=== PATIENT | female | born 1950 | race Two or more races ===

== ENCOUNTER 2020-06-05 | Outpatient (CLI) | payer OTHER | END 2020-06-05 07:34 | disposition home or self-care (01) | LOC: PPH VACUNA | PROVIDERS: ATTEND Emergency Medicine Pediatric Emergency Medicine | DX: Z23 Encounter for immunization (principal) ==

== ENCOUNTER 2024-05-10 13:07 | Inpatient (IN) | payer OTHER ==
[~2024-05-10] VITALS: Ht 152.4 cm; Wt 67.1 kg
[2024-05-10 14:00] VITALS: BP 128/65; O2SAT 96
[2024-05-10] MEDS ORDERED: PIPERACILLIN/TAZOBACTAM SODIUM 3.375 GM VIAL IV SCH (14:00)
[2024-05-10] MEDS ORDERED: 0.9 % SODIUM CHLORIDE 1,000 ML IV SCH (14:00)
[2024-05-10] MEDS ORDERED: FAMOTIDINE/PF 20 MG/2 ML VIAL IV PUSH SCH (17:00)
[2024-05-10 17:05] VITALS: BP 161/74; O2SAT 98
[2024-05-10] MEDS ORDERED: DIATRIZOATE MEGLUMINE, SODIUM 30 ML BOTTLE PO ONE (18:45)
[2024-05-10] MEDS ORDERED: MORPHINE SULFATE 4 MG/ML CARTRIDGE IV PRN (18:45)
[2024-05-10] MEDS ORDERED: PHENOL 177 ML BOTTLE MM SCH (18:58)
[2024-05-10] MEDS ORDERED: ONDANSETRON HCL 2 MG/ML VIAL IV SCH (20:00)
[2024-05-11] VITALS: BP 149/78; O2SAT 96
[2024-05-11] MEDS ORDERED: DIATRIZOATE MEGLUMINE, SODIUM 30 ML BOTTLE PO ONE (06:00)
[2024-05-11 07:35] VITALS: BP 133/69; O2SAT 93
[2024-05-11 12:07] LABS: HEMATOCRIT 30.3 % (36.0-45.00); HEMOGLOBIN 10.3 g/dL (12.0-15.00); MEAN CELL VOLUME 89.8 fL (80.00-100.00); MEAN CORPUSCULAR HEMOGLOBIN 30.5 pg (27.00-32.0); MEAN CORPUSCULAR HGB CONC 33.9 g/dl (32.0-36.0); PLATELET COUNT 717 K/uL (150-450); RED BLOOD COUNT 3.38 M/uL (4.00-6.00); RED CELL DISTRIBUTION WIDTH 13.5 % (11.5-14.5)
[2024-05-11] MEDS ORDERED: ENALAPRILAT DIHYDRATE 1.25 MG/ML VIAL IV PRN (12:30)
[2024-05-11 12:53] LABS: ALBUMIN 2.6 gm/dL (3.4-5.0); BILIRUBIN TOTAL 0.65 mg/dL (0.3-1.2); CALCIUM 7.8 mg/dL (8.5-10.1); CREATININE SERUM 0.72 mg/dL (0.55-1.02); GFR 79.62; GLOBULINA 4.1 G/DL (2.4-3.5); MAGNESIUM 2.5 mg/dL (1.8-2.4); PHOSPHOROUS 2.7 mg/dL (2.5-4.9); POTASSIUM 3.81 mEq/L (3.5-5.1); TOTAL PROTEIN 6.7 gm/dL (6.4-8.2)
[2024-05-11 12:54] LABS: C-REACTIVE PROTEIN 4.79 MG/DL (0.00-0.29)
[2024-05-11] MEDS ORDERED: THIAMINE HCL 100 MG/ML 2 ML VIAL IV NR (13:00)
[2024-05-11] MEDS ORDERED: MULTIVIT INFUSN,ADULT 4,VIT K 10 ML VIAL IV NR (13:00)
[2024-05-11] MEDS ORDERED: ENOXAPARIN SODIUM 40 MG/0.4 ML SYRINGE SUBCUTANEO NR (13:00)
[2024-05-11 13:33] LABS: INR 1.34; PROTHROMBIN TIME 14.3 SECONDS (9.0-11.5)
[2024-05-11 15:30] LABS: PH,URINE 5.5 (5.0-8.0); URINE APPEARANCE Clear; URINE BILIRRUBIN Negative (NEGATIVE); URINE BLOOD Negative; URINE COLOR Yellow; URINE GLUCOSE Negative (NEGATIVE); URINE LEUKOCYTE Negative; URINE NITRATE Negative; URINE PROTEIN 30 (NEGATIVE); URINE UROBILINOGEN 0.2 E.U./dl
[2024-05-11 15:37] LABS: URINE BACTERIA 25.7 uL (0.0-1933); URINE EPITHELIAL CELLS 17.4 uL (0.0-38.8); URINE RBC 19.8 uL (0.0-20.8)
[2024-05-11] MEDS ORDERED: VANCOMYCIN HCL 1,000 MG VIAL ONE ×2 (15:48→22:07)
[2024-05-11 16:15] LABS: URINE CAST 0.29 uL (0.0-1.40); URINE KETONE 40 (NEGATIVE)
[2024-05-11] MEDS ORDERED: AMINO ACIDS 4.25 %/DEXTROSE 5% 1,000 ML PERIFERAL SCH (17:00)
[2024-05-11] MEDS ORDERED: VANCOMYCIN HCL 1,000 MG VIAL IV SCH (17:00)
[2024-05-11 17:08] VITALS: BP 164/74; O2SAT 100
[2024-05-11 23:37] LABS: HEMATOCRIT 31.5 % (36.0-45.00); MEAN CELL VOLUME 89.7 fL (80.00-100.00); MEAN CORPUSCULAR HGB CONC 33.2 g/dl (32.0-36.0); PLATELET COUNT 749 K/uL (150-450); RED BLOOD COUNT 3.51 M/uL (4.00-6.00); RED CELL DISTRIBUTION WIDTH 13.6 % (11.5-14.5)
[2024-05-11 23:40] LABS: HEMOGLOBIN 10.4 g/dL (12.0-15.00); MEAN CORPUSCULAR HEMOGLOBIN 29.6 pg (27.00-32.0)
[2024-05-11 23:45] LABS: CALCIUM 7.6 mg/dL (8.5-10.1); CHOL HDL RATIO 6.3 (0-5.0); CREATININE SERUM 0.92 mg/dL (0.55-1.02); GFR 60.01; POTASSIUM 3.33 mEq/L (3.5-5.1)
[2024-05-12 00:03] LABS: CALCIUM 7.7 mg/dL (8.5-10.1); CREATININE SERUM 0.93 mg/dL (0.55-1.02); GFR 59.26; MAGNESIUM 2.2 mg/dL (1.8-2.4); PHOSPHOROUS 2.2 mg/dL (2.5-4.9); POTASSIUM 3.33 mEq/L (3.5-5.1)
[2024-05-12 00:45] VITALS: BP 145/69; O2SAT 96
[2024-05-12] MEDS ORDERED: MULTIVIT INFUSN,ADULT 4,VIT K 10 ML VIAL IV SCH (09:00)
[2024-05-12] MEDS ORDERED: ENOXAPARIN SODIUM 40 MG/0.4 ML SYRINGE SUBCUTANEO SCH (09:00)
[2024-05-12] MEDS ORDERED: THIAMINE HCL 100 MG/ML 2 ML VIAL IV SCH (09:00)
[2024-05-12] MEDS ORDERED: SUCRALFATE 1 G TABLET PO SCH (09:00)
[2024-05-12] MEDS ORDERED: POTASSIUM CHLORIDE 20MEQ/100ML H2O PB IV NR (11:00)
[2024-05-12] MEDS ORDERED: POTASSIUM PHOS,M-BASIC-D-BASIC 3 MM/ML VIAL IV NR (11:00)
[2024-05-12] MEDS ORDERED: LACTOBACILLUS ACIDOPHILUS 1 CAP CAP PO SCH (11:01)
[2024-05-12] MEDS ORDERED: VALSARTAN 160 MG PO SCH (11:02)
[2024-05-12 11:30] VITALS: BP 131/67; O2SAT 96
[2024-05-12] MEDS ORDERED: VANCOMYCIN HCL 1,000 MG VIAL ONE (15:44)
[2024-05-12 16:10] VITALS: BP 149/70; O2SAT 99
[2024-05-12] MEDS ORDERED: DOXYCYCLINE HYCLATE 100MG IV SCH (21:00)
[2024-05-12] MEDS ORDERED: DOXYCYCLINE HYCLATE 100MG IV ONE (21:37)
[2024-05-13 00:31] VITALS: BP 132/72; O2SAT 100
[2024-05-13 08:27] LABS: HEMATOCRIT 28.1 % (36.0-45.00); HEMOGLOBIN 9.4 g/dL (12.0-15.00); MEAN CORPUSCULAR HEMOGLOBIN 30.2 pg (27.00-32.0); MEAN CORPUSCULAR HGB CONC 33.6 g/dl (32.0-36.0); PLATELET COUNT 481 K/uL (150-450); RED BLOOD COUNT 3.12 M/uL (4.00-6.00); RED CELL DISTRIBUTION WIDTH 13.4 % (11.5-14.5)
[2024-05-13 08:46] VITALS: BP 140/65; O2SAT 99
[2024-05-13] MEDS ORDERED: Cyanocobalamin/Mecobalamin 1 TAB.SL SL SCH (09:40)
[2024-05-13] MEDS ORDERED: SOD FERRIC GLUC COMPLX/SUCROSE 62.5 MG in 0.9 % SODIUM CHLORIDE 50 ML IV SCH (11:34)
[2024-05-13] MEDS ORDERED: LEVALBUTEROL HCL 0.63 MG/3 ML SOLUTION IH ONE (11:44)
[2024-05-13] MEDS ORDERED: FUROsemide 20 MG/2 ML VIAL IV STA (11:59)
[2024-05-13] MEDS ORDERED: LEVALBUTEROL HCL 0.63 MG/3 ML SOLUTION IH STA (12:00)
[2024-05-13] MEDS ORDERED: DOXYCYCLINE HYCLATE 100MG IV ONE ×2 (12:57→14:23)
[2024-05-13 16:00] VITALS: BP 121/69; O2SAT 98
[2024-05-13] MEDS ORDERED: LEVALBUTEROL HCL 0.63 MG/3 ML SOLUTION IH SCH (17:00)
[2024-05-14 00:09] VITALS: BP 137/65; O2SAT 97
[2024-05-14] MEDS ORDERED: DOXYCYCLINE HYCLATE 100MG IV ONE ×2 (07:52→14:37)
[2024-05-14 09:44] VITALS: BP 129/73; O2SAT 99
[2024-05-14] MEDS ORDERED: BUDESONIDE 0.25 MG/2 ML AMPUL.NEB IH SCH (09:55)
[2024-05-14] MEDS ORDERED: FUROsemide 20 MG/2 ML VIAL IV SCH (09:56)
[2024-05-14] MEDS ORDERED: FAMOTIDINE/PF 20 MG/2 ML VIAL IV PUSH SCH (13:00)
[2024-05-14 16:00] VITALS: BP 147/70; O2SAT 95
[2024-05-15 00:59] VITALS: BP 147/63; O2SAT 95
[2024-05-15 07:20] LABS: MEAN CELL VOLUME 89.7 fL (80.00-100.00); MEAN CORPUSCULAR HGB CONC 35.3 g/dl (32.0-36.0); PLATELET COUNT 568 K/uL (150-450); RED BLOOD COUNT 2.57 M/uL (4.00-6.00); RED CELL DISTRIBUTION WIDTH 13.7 % (11.5-14.5)
[2024-05-15 07:27] LABS: HEMOGLOBIN 8.1 g/dL (12.0-15.00); MEAN CORPUSCULAR HEMOGLOBIN 31.5 pg (27.00-32.0)
[2024-05-15] MEDS ORDERED: DOXYCYCLINE HYCLATE 100MG IV ONE ×2 (07:36→14:28)
[2024-05-15 07:58] LABS: CALCIUM 7.6 mg/dL (8.5-10.1); CREATININE SERUM 0.72 mg/dL (0.55-1.02); GFR 79.62; MAGNESIUM 1.6 mg/dL (1.8-2.4); PHOSPHOROUS 2.6 mg/dL (2.5-4.9); POTASSIUM 3.28 mEq/L (3.5-5.1)
[2024-05-15 08:03] VITALS: BP 146/74; O2SAT 96
[2024-05-15] MEDS ORDERED: HYDROCHLOROTHIAZIDE 12.5 MG CAPSULE PO SCH (09:00)
[2024-05-15] MEDS ORDERED: MAGNESIUM SULFATE IN WATER 50 ML IV NR (09:00)
[2024-05-15] MEDS ORDERED: POTASSIUM CHLORIDE 20MEQ/100ML H2O PB IV NR (11:00)
[2024-05-15 13:45] LABS: HEMATOCRIT 30.2 % (36.0-45.00); HEMOGLOBIN 10.3 g/dL (12.0-15.00); MEAN CELL VOLUME 88.9 fL (80.00-100.00); MEAN CORPUSCULAR HEMOGLOBIN 30.2 pg (27.00-32.0); PLATELET COUNT 753 K/uL (150-450); RED CELL DISTRIBUTION WIDTH 13.4 % (11.5-14.5)
[2024-05-15 16:41] VITALS: BP 165/81; O2SAT 98
[2024-05-16] VITALS: BP 150/56; O2SAT 96
[2024-05-16] MEDS ORDERED: DOXYCYCLINE HYCLATE 100MG IV ONE ×2 (07:37→15:30)
[2024-05-16 08:20] VITALS: BP 152/78; O2SAT 100
[2024-05-16 19:44] VITALS: BP 163/70; O2SAT 97
[2024-05-17 00:30] VITALS: BP 135/72; O2SAT 98
[2024-05-17] MEDS ORDERED: DOXYCYCLINE HYCLATE 100MG IV ONE ×2 (07:22→16:31)
[2024-05-17 07:51] LABS: HEMATOCRIT 24.5 % (36.0-45.00); MEAN CELL VOLUME 90.3 fL (80.00-100.00); MEAN CORPUSCULAR HEMOGLOBIN 31.7 pg (27.00-32.0); MEAN CORPUSCULAR HGB CONC 35.2 g/dl (32.0-36.0); PLATELET COUNT 580 K/uL (150-450); RED BLOOD COUNT 2.71 M/uL (4.00-6.00); RED CELL DISTRIBUTION WIDTH 13.7 % (11.5-14.5)
[2024-05-17 07:52] LABS: HEMOGLOBIN 8.6 g/dL (12.0-15.00)
[2024-05-17 08:31] VITALS: BP 158/69; O2SAT 96
[2024-05-17] MEDS ORDERED: PANTOPRAZOLE SODIUM 40 MG/VIAL VIAL IV SCH (08:45)
[2024-05-17 09:03] LABS: ALBUMIN 2.2 gm/dL (3.4-5.0); BILIRUBIN TOTAL 0.76 mg/dL (0.3-1.2); CALCIUM 8.2 mg/dL (8.5-10.1); CREATININE SERUM 0.72 mg/dL (0.55-1.02); GFR 79.62; GLOBULINA 3.4 G/DL (2.4-3.5); MAGNESIUM 1.7 mg/dL (1.8-2.4); PHOSPHOROUS 3.2 mg/dL (2.5-4.9); POTASSIUM 3.22 mEq/L (3.5-5.1); TOTAL PROTEIN 5.6 gm/dL (6.4-8.2); TSH 2.49 uIU/mL (0.358-3.74)
[2024-05-17 09:15] LABS: C-REACTIVE PROTEIN 4.74 MG/DL (0.00-0.29)
[2024-05-17] MEDS ORDERED: DIATRIZOATE MEGLUMINE, SODIUM 30 ML BOTTLE PO STA (10:20)
[2024-05-17] MEDS ORDERED: POTASSIUM CHLORIDE 20MEQ/100ML H2O PB IV NR (13:15)
[2024-05-17 16:00] VITALS: BP 164/74; O2SAT 96
[2024-05-18 01:28] VITALS: BP 136/65; O2SAT 97
[2024-05-18] MEDS ORDERED: DOXYCYCLINE HYCLATE 100MG IV ONE ×2 (07:19→15:13)
[2024-05-18 08:00] VITALS: BP 158/84; O2SAT 97
[2024-05-18 12:00] VITALS: BP 155/70; O2SAT 95
[2024-05-18 12:16] LABS: ABG PH 7.522 (7.35-7.45); ABG pCO2 37.5 mmHg (35-45); BICARBONATE 30.1 mmol/l (23-25); SaO2 93.2 %; Tco2 31.2 mmol/l
[2024-05-18 12:21] LABS: ABG PO2 57.9 mmHg (80-100); allen test SATISFACTORY; o2 21 %; puncture site RADIAL RIGHT
[2024-05-18] MEDS ORDERED: AMLODIPINE BESYLATE 5 MG TABLET PO SCH (12:40)
[2024-05-18 16:00] VITALS: BP 160/80; O2SAT 95
[2024-05-18 20:56] LABS: TP PLEURAL FLUID 2.3 g/dl
[2024-05-18] MEDS ORDERED: FAMOtidine 20 MG TABLET PO SCH (21:00)
[2024-05-18 21:33] LABS: MONONUCLEAR 90 %; PLEURAL FLUID APPEARANCE HAZY; PLEURAL FLUID COLOR YELLOW; POLYMORPHONUCLEAR 10 %
[2024-05-19] VITALS: BP 144/65; O2SAT 95
[2024-05-19 06:50] LABS: HEMATOCRIT 26.5 % (36.0-45.00); HEMOGLOBIN 9.3 g/dL (12.0-15.00); MEAN CORPUSCULAR HEMOGLOBIN 31.4 pg (27.00-32.0); MEAN CORPUSCULAR HGB CONC 35.3 g/dl (32.0-36.0); PLATELET COUNT 548 K/uL (150-450); RED BLOOD COUNT 2.98 M/uL (4.00-6.00); RED CELL DISTRIBUTION WIDTH 14.3 % (11.5-14.5)
[2024-05-19 07:18] LABS: ALBUMIN 2.4 gm/dL (3.4-5.0); BILIRUBIN TOTAL 0.67 mg/dL (0.3-1.2); C-REACTIVE PROTEIN 3.66 MG/DL (0.00-0.29); CALCIUM 8.6 mg/dL (8.5-10.1); CREATININE SERUM 0.72 mg/dL (0.55-1.02); GFR 79.62; GLOBULINA 3.6 G/DL (2.4-3.5); MAGNESIUM 1.6 mg/dL (1.8-2.4); PHOSPHOROUS 3.6 mg/dL (2.5-4.9); POTASSIUM 3.19 mEq/L (3.5-5.1)
[2024-05-19 08:00] VITALS: BP 140/60; O2SAT 95
[2024-05-19] MEDS ORDERED: DOXYCYCLINE HYCLATE 100MG IV ONE ×2 (08:27→15:58)
[2024-05-19] MEDS ORDERED: MAGNESIUM SULFATE IN WATER 50 ML IV NR (12:00)
[2024-05-19] MEDS ORDERED: POTASSIUM CHLORIDE 20MEQ/100ML H2O PB IV NR (14:00)
[2024-05-19 17:00] VITALS: BP 110/62; O2SAT 95
[2024-05-20 01:00] VITALS: BP 122/72; O2SAT 96
[2024-05-20 08:00] VITALS: BP 127/68; O2SAT 95
[2024-05-20] MEDS ORDERED: DOXYCYCLINE HYCLATE 100MG IV ONE ×2 (08:18→14:58)
[2024-05-20 08:47] LABS: ABG PO2 63.4 mmHg (80-100); ABG pCO2 38.5 mmHg (35-45); BASE EXCESS 5.1 mmol/l; BICARBONATE 28.7 mmol/l (23-25); SaO2 94.1 %; Tco2 29.9 mmol/l
[2024-05-20 08:53] LABS: allen test SATISFACTORY; o2 21 %; puncture site RADIAL RIGHT
[2024-05-20 15:39] LABS: HEMATOCRIT 30.9 % (36.0-45.00); HEMOGLOBIN 10.6 g/dL (12.0-15.00); MEAN CELL VOLUME 89.8 fL (80.00-100.00); MEAN CORPUSCULAR HEMOGLOBIN 30.8 pg (27.00-32.0); MEAN CORPUSCULAR HGB CONC 34.3 g/dl (32.0-36.0); PLATELET COUNT 550 K/uL (150-450); RED BLOOD COUNT 3.44 M/uL (4.00-6.00); RED CELL DISTRIBUTION WIDTH 14.2 % (11.5-14.5)
[2024-05-20 17:34] VITALS: BP 149/66; O2SAT 96
[2024-05-21] VITALS: BP 115/65; O2SAT 95
[2024-05-21] MEDS ORDERED: DOXYCYCLINE HYCLATE 100MG IV ONE ×3 (07:37→14:40)
[2024-05-21 08:00] VITALS: BP 129/72; O2SAT 95
== END 2024-05-21 16:05 | disposition home or self-care (01) | DRG 871 ==
LOC: SURH 13:07
PROVIDERS: Internal Medicine; Internal Medicine Geriatric Medicine; Internal Medicine Infectious Disease; Radiology Vascular & Interventional Radiology; ADMIT Surgery; ATTEND Surgery
PROC: BW21YZZ Computerized Tomography (CT Scan) of Abdomen and Pelvis using Other Contrast (ICD-10-PCS; 2024-05-10)
PROC: BW24ZZZ Computerized Tomography (CT Scan) of Chest and Abdomen (ICD-10-PCS; 2024-05-11)
PROC: B24BZZZ Ultrasonography of Heart with Aorta (ICD-10-PCS; 2024-05-11)
PROC: 02HV33Z Insertion of Infusion Device into Superior Vena Cava, Percutaneous Approach (ICD-10-PCS; 2024-05-11)
PROC: BW21YZZ Computerized Tomography (CT Scan) of Abdomen and Pelvis using Other Contrast (ICD-10-PCS; 2024-05-17)
PROC: 0W9B3ZX Drainage of Left Pleural Cavity, Percutaneous Approach, Diagnostic (ICD-10-PCS; principal; 2024-05-18)
PROC: 0W9B3ZZ Drainage of Left Pleural Cavity, Percutaneous Approach (ICD-10-PCS; 2024-05-19)
DX: A41.1 Sepsis due to other specified staphylococcus (principal); J18.9 Pneumonia, unspecified organism; K56.609 Unspecified intestinal obstruction, unspecified as to partial versus complete obstruction; J90 Pleural effusion, not elsewhere classified; N17.9 Acute kidney failure, unspecified; E86.0 Dehydration; I10 Essential (primary) hypertension; D64.9 Anemia, unspecified; I34.0 Nonrheumatic mitral (valve) insufficiency; N39.3 Stress incontinence (female) (male); B95.8 Unspecified staphylococcus as the cause of diseases classified elsewhere
CPT/HCPCS: 240

== ENCOUNTER 2024-12-11 10:59 | Outpatient (CLI) | payer OTHER | END 2024-12-11 11:00 | disposition home or self-care (01) | LOC: RX STUDY 10:59 | PROVIDERS: ATTEND Internal Medicine Gastroenterology | DX: K59.01 Slow transit constipation (principal) ==